=== PATIENT | female | born 1970 | race Caucasian/White ===

== ENCOUNTER 2016-08-26 17:32 | Emergency (ER) | payer OTHER ==
[2016-08-26 17:48] VITALS: BP 143/91
== END 2016-08-26 18:41 | disposition home or self-care (01) ==
LOC: ED 17:32
DX: N39.0 Urinary tract infection, site not specified (principal); Z87.42 Personal history of other diseases of the female genital tract; Z88.0 Allergy status to penicillin; Z98.890 Other specified postprocedural states